=== PATIENT | female | born 1940 | race Caucasian/White ===

== ENCOUNTER → 2024-06-20 07:07 | Outpatient (REF) | payer MEDICARE, OTHER, SELFPAY | LOC: RAD 07:07 | PROVIDERS: ATTENDING PHYSICIAN Specialist; FAMILY PHYSICIAN Family Medicine | DX: G31.83 Neurocognitive disorder with Lewy bodies (principal) | CPT/HCPCS: 70450 ==

== ENCOUNTER → 2024-09-19 14:36 | Outpatient (REF) | payer MEDICARE, OTHER, SELFPAY | LOC: WDC 14:36 | PROVIDERS: ATTENDING PHYSICIAN Family Medicine | DX: Z12.31 Encounter for screening mammogram for malignant neoplasm of breast (principal) | CPT/HCPCS: 77063; 77067 ==

== ENCOUNTER → 2025-09-22 13:17 | Outpatient (REF) | payer MEDICARE, OTHER, SELFPAY | LOC: WDC 13:17 | PROVIDERS: ATTENDING PHYSICIAN Family Medicine | DX: Z12.31 Encounter for screening mammogram for malignant neoplasm of breast (principal) | CPT/HCPCS: 77063; 77067 ==